=== PATIENT | female | born 1940 | race Caucasian/White ===

== ENCOUNTER 2023-10-15 13:13 | Inpatient (IN) | payer MEDICARE, OTHER ==
[~2023-10-15] VITALS: Ht 167.6 cm; Wt 104.0 kg
[2023-10-15 14:31] LABS: BASOPHILS % (AUTO) 0.4 % (0.0-2.0); EOSINOPHILS # (AUTO) 0.4 K/uL (0.0-0.7); EOSINOPHILS % (AUTO) 4.8 % (0.0-6.0); HEMATOCRIT 44 % (33-45); HEMOGLOBIN 14.5 g/dL (11.5-14.8); LYMPHOCYTES # (AUTO) 1.3 K/uL (0.8-4.8); LYMPHOCYTES % (AUTO) 14.9 % (20.0-44.0); MEAN CORPUSCULAR HEMOGLOBIN 27 PG (26.0-33.0); MEAN CORPUSCULAR HGB CONC 33 g/dl (31.0-36.0); MEAN CORPUSCULAR VOLUME 80 fL (82-100); MONOCYTES # (AUTO) 0.5 K/uL (0.1-1.30); MONOCYTES % (AUTO) 5.4 % (2.0-12.0); NEUTROPHILS # (AUTO) 6.7 K/uL (1.8-8.9); NEUTROPHILS % (AUTO) 74.5 % (43.0-81.0); PLATELET COUNT (AUTO) 210 K/uL (150-450); RED BLOOD CELL COUNT(AUTO) 5.47 MIL/uL (4.0-5.2); RED CELL DISTRIBUTION WIDTH 13.2 % (11.5-15.0); WHITE BLOOD COUNT (AUTO) 8.9 K/uL (4.3-11.0)
[2023-10-15 14:39] LABS: CALCIUM, SERUM 9.6 mg/dL (8.5-10.1); CARBON DIOXIDE 28 mmol/L (21-32); CHLORIDE 99 mmol/L (98-107); CREATININE 0.7 mg/dL (0.6-1.3); GLUCOSE 173 mg/dL (74-106); POTASSIUM 3.6 mmol/L (3.5-5.1); SODIUM SERUM 137 mmol/L (136-145); UREA NITROGEN, BLOOD 12 mg/dL (7-18)
[2023-10-15] MEDS ORDERED: NITROGLYCERIN 0.4 MG/TAB BOTTLE ONE (14:41)
[2023-10-15 14:46] LABS: APPEARANCE,URINE CLEAR (CLEAR); BILIRUBIN,URINE NEGATIVE (NEGATIVE); BLOOD, URINE TRACE-INTA Ery/uL (NEGATIVE); COLOR,URINE YELLOW (YELLOW); KETONES,URINE NEGATIVE (NEGATIVE); LEUKOCYTE ESTERASE ,URINE 1+ (NEGATIVE); NITRITE, URINE NEGATIVE (NEGATIVE); PROTEIN,URINE 1+ mg/dl (NEGATIVE); UGLUCOSE NEGATIVE (NEGATIVE)
[2023-10-15 14:52] LABS: NT-PRO BNP 892 pg/mL (0-125)
[2023-10-15] MEDS ORDERED: NITROGLYCERIN 0.4 MG/TAB BOTTLE SL ONE (15:00)
[2023-10-15] MEDS ORDERED: IV NS 0.9% 250 ML IV ONE (15:14)
[2023-10-15] MEDS ORDERED: IOHEXOL-350 100 ML VIAL IV ONE (15:14)
[2023-10-15] MEDS ORDERED: CT SWABBABLE VALVE TRANS SET 1 EA INFUS.SET MC ONE (15:14)
[2023-10-15] MEDS ORDERED: MORPHINE SULFATE INJ 2 MG/ML DISP.SYRIN ONE ×2 (15:16→16:47)
[2023-10-15] MEDS ORDERED: MORPHINE SULFATE INJ 2 MG/ML DISP.SYRIN IV ONE ×2 (15:30→16:30)
[2023-10-15] MEDS ORDERED: LEVO100T9 PO (16:03)
[2023-10-15] MEDS ORDERED: ATOR40TA PO (16:03)
[2023-10-15] MEDS ORDERED: DOCU100C58 PO (16:03)
[2023-10-15] MEDS ORDERED: CHOL100043 PO (16:03)
[2023-10-15] MEDS ORDERED: METO25TA20 PO (16:03)
[2023-10-15] MEDS ORDERED: METF-440 PO (16:03)
[2023-10-15] MEDS ORDERED: ASPI-1420 PO (16:03)
[2023-10-15] MEDS ORDERED: LOSA50TA39 PO (16:03)
[2023-10-15] MEDS ORDERED: CALCIUM CARBONATE PO (16:04)
[2023-10-15 16:11] LABS: ADD URINE CULTURE YES; BACTERIA,URINE 1+ /HPF (None Seen)
[2023-10-15] MEDS ORDERED: FUROSEMIDE 20 MG/2 ML VIAL ONE (16:47)
[2023-10-15] MEDS ORDERED: CEFTRIAXONE 1GM BAG (ER ONLY) 50 ML IV ONE (16:47)
[2023-10-15] MEDS ORDERED: ASPIRIN 81 MG TAB.CHEW ONE (16:48)
[2023-10-15] MEDS: CEFTRIAXONE 1 G in IV D5W 50 ML IV SCH (16:53)
[2023-10-15] MEDS ORDERED: NITROGLYCERIN 0.4 MG/TAB BOTTLE SL PRN (17:00)
[2023-10-15] MEDS ORDERED: MORPHINE SULFATE INJ 2 MG/ML DISP.SYRIN IV PRN (17:00)
[2023-10-15] MEDS ORDERED: FUROSEMIDE 20 MG/2 ML VIAL IV ONE (17:00)
[2023-10-15] MEDS ORDERED: CEFTRIAXONE 1 G in IV D5W 50 ML IV ONE (17:00)
[2023-10-15] MEDS ORDERED: ASPIRIN 81 MG TAB.CHEW PO ONE (17:00)
[2023-10-15 17:30] VITALS: BP 158/85; TEMP 98.4; O2SAT 98
[2023-10-15] MEDS ORDERED: METFORMIN 500 MG TABLET PO PRN (18:30)
[2023-10-15] MEDS ORDERED: METOPROLOL TARTRATE 25 MG TABLET PO SCH (18:30)
[2023-10-15 18:45] LABS: ALBUMIN 3.2 g/dL (3.4-5.0); BILIRUBIN,DIRECT 0.9 mg/dL (0.0-0.2); BILIRUBIN,TOTAL 1.5 mg/dL (0.2-1.0); TOTAL PROTEIN, SERUM 7.5 g/dL (6.4-8.2)
[2023-10-15 20:00] VITALS: BP 142/77; TEMP 97.6; O2SAT 99
[2023-10-16] VITALS: BP 132/59; TEMP 98.2; O2SAT 97
[2023-10-16 04:00] VITALS: BP 141/74; TEMP 98.5; O2SAT 98
[2023-10-16 06:27] LABS: BASOPHILS % (AUTO) 0.6 % (0.0-2.0); EOSINOPHILS # (AUTO) 0.7 K/uL (0.0-0.7); HEMATOCRIT 41 % (33-45); HEMOGLOBIN 13.8 g/dL (11.5-14.8); LYMPHOCYTES # (AUTO) 1.4 K/uL (0.8-4.8); MEAN CORPUSCULAR HEMOGLOBIN 27 PG (26.0-33.0); MEAN CORPUSCULAR HGB CONC 34 g/dl (31.0-36.0); MEAN CORPUSCULAR VOLUME 79 fL (82-100); MONOCYTES # (AUTO) 0.9 K/uL (0.1-1.30); MONOCYTES % (AUTO) 12.3 % (2.0-12.0); NEUTROPHILS % (AUTO) 57.1 % (43.0-81.0); PLATELET COUNT (AUTO) 188 K/uL (150-450); RED BLOOD CELL COUNT(AUTO) 5.14 MIL/uL (4.0-5.2); RED CELL DISTRIBUTION WIDTH 13.8 % (11.5-15.0)
[2023-10-16 06:56] LABS: CALCIUM, SERUM 9.4 mg/dL (8.5-10.1); CHLORIDE 102 mmol/L (98-107); CREATININE 0.6 mg/dL (0.6-1.3); GLUCOSE 147 mg/dL (74-106); MAGNESIUM 1.8 mg/dL (1.8-2.4); PHOSPHORUS 4.6 mg/dL (2.5-4.9); POTASSIUM 3.4 mmol/L (3.5-5.1); SODIUM SERUM 138 mmol/L (136-145); UREA NITROGEN, BLOOD 13 mg/dL (7-18)
[2023-10-16 07:27] LABS: CARBON DIOXIDE 26 mmol/L (21-32)
[2023-10-16 08:00] VITALS: BP 140/88; TEMP 98.2; O2SAT 96
[2023-10-16] MEDS: LEVOTHYROXINE SODIUM 100 MCG TABLET PO SCH (08:23)
[2023-10-16] MEDS: ASPIRIN EC 81 MG TABLET.DR PO SCH (08:24)
[2023-10-16] MEDS: FUROSEMIDE 20 MG/2 ML VIAL IV SCH (08:30)
[2023-10-16] MEDS: VALSARTAN 80 MG TABLET PO SCH (08:47)
[2023-10-16] MEDS ORDERED: LOSARTAN POTASSIUM 50 MG TABLET PO SCH (09:00)
[2023-10-16] MEDS ORDERED: ATORVASTATIN 40 MG TABLET PO SCH (09:00)
[2023-10-16] MEDS ORDERED: ASPIRIN 81 MG TAB.CHEW PO SCH (09:00)
[2023-10-16 09:27] LABS: ALANINE AMINOTRANSFERASE 1081 U/L (12-78); ALBUMIN 3.1 g/dL (3.4-5.0); ALKALINE PHOSPHATASE 280 U/L (46-116); ASPARTATE AMINOTRANSFERASE > 1000 U/L (15-37); BILIRUBIN,TOTAL 1.8 mg/dL (0.2-1.0); CALCIUM, SERUM 9.4 mg/dL (8.5-10.1); CARBON DIOXIDE 26 mmol/L (21-32); CHLORIDE 101 mmol/L (98-107); CREATININE 0.6 mg/dL (0.6-1.3); GLUCOSE 143 mg/dL (74-106); POTASSIUM 3.4 mmol/L (3.5-5.1); SODIUM SERUM 139 mmol/L (136-145); TOTAL PROTEIN, SERUM 7.2 g/dL (6.4-8.2); UREA NITROGEN, BLOOD 14 mg/dL (7-18)
[2023-10-16 09:36] LABS: THYROID STIMULATING HORMONE 2.088 uIU/mL (0.358-3.74)
[2023-10-16] MEDS ORDERED: IOHEXOL-350 100 ML VIAL IV ONE (09:59)
[2023-10-16] MEDS ORDERED: NITROGLYCERIN 0.4 MG/TAB BOTTLE SL ONE (10:00)
[2023-10-16] MEDS ORDERED: METOPROLOL TARTRATE INJ 5 MG/5 ML AMPUL ONE (10:15)
[2023-10-16] MEDS ORDERED: NITROGLYCERIN 0.4 MG/TAB BOTTLE ONE (10:15)
[2023-10-16] MEDS: METOPROLOL TARTRATE INJ 5 MG/5 ML AMPUL IVP PRN ×3 (10:30→10:40)
[2023-10-16] MEDS ORDERED: POTASSIUM CHLORIDE 20 MEQ TAB.PRT.SR PO ONE (11:00)
[2023-10-16 12:00] VITALS: BP 128/63; TEMP 98.4; O2SAT 97
[2023-10-16] MEDS: METOPROLOL TARTRATE 25 MG TABLET PO SCH ×2 (13:58→18:27)
[2023-10-16 16:00] VITALS: BP 114/76; TEMP 98.5; O2SAT 94
[2023-10-16] MEDS: ENOXAPARIN SODIUM 100 MG/ML DISP.SYRIN SQ SCH (18:32)
[2023-10-16] MEDS: CEFTRIAXONE 1 G in IV D5W 50 ML IV SCH (18:33)
[2023-10-17] MEDS: ENOXAPARIN SODIUM 100 MG/ML DISP.SYRIN SQ SCH (05:12)
[2023-10-17 07:11] LABS: INR 1.08 (0.91-1.10); PROTHROMBIN TIME 11.4 SECS (9.2-11.1)
[2023-10-17 07:15] LABS: BASOPHILS % (AUTO) 0.6 % (0.0-2.0); EOSINOPHILS # (AUTO) 0.9 K/uL (0.0-0.7); EOSINOPHILS % (AUTO) 10.5 % (0.0-6.0); HEMATOCRIT 45 % (33-45); LYMPHOCYTES # (AUTO) 2.6 K/uL (0.8-4.8); LYMPHOCYTES % (AUTO) 30.8 % (20.0-44.0); MEAN CORPUSCULAR HEMOGLOBIN 27 PG (26.0-33.0); MEAN CORPUSCULAR HGB CONC 34 g/dl (31.0-36.0); MEAN CORPUSCULAR VOLUME 80 fL (82-100); MONOCYTES # (AUTO) 0.8 K/uL (0.1-1.30); MONOCYTES % (AUTO) 9.9 % (2.0-12.0); NEUTROPHILS % (AUTO) 48.2 % (43.0-81.0); PLATELET COUNT (AUTO) 205 K/uL (150-450); RED BLOOD CELL COUNT(AUTO) 5.57 MIL/uL (4.0-5.2); WHITE BLOOD COUNT (AUTO) 8.3 K/uL (4.3-11.0)
[2023-10-17 07:17] LABS: BILIRUBIN,TOTAL 0.7 mg/dL (0.2-1.0); CALCIUM, SERUM 9.3 mg/dL (8.5-10.1); CREATININE 0.7 mg/dL (0.6-1.3); PHOSPHORUS 4.3 mg/dL (2.5-4.9); POTASSIUM 3.7 mmol/L (3.5-5.1); TOTAL PROTEIN, SERUM 7.3 g/dL (6.4-8.2)
[2023-10-17] MEDS: LEVOTHYROXINE SODIUM 100 MCG TABLET PO SCH ×2 (07:30→07:52)
[2023-10-17 08:08] LABS: *ANA ANTI-CENTROMERE B AB <0.2 AI (0.0-0.9); *ANA ANTI-DNA(DS) AB, QN 1 IU/mL (0-9); *ANA ANTI-JO-1 <0.2 AI (0.0-0.9); *ANA ANTICHROMATIN ANTIBODY <0.2 AI (0.0-0.9); *ANA RNP ANTIBODIES <0.2 AI (0.0-0.9); *ANA SJOGREN'S ANTI-SS-A <0.2 AI (0.0-0.9); *ANA SJOGREN'S ANTI-SS-B <0.2 AI (0.0-0.9); *ANAANTI-SCLERODERMA-70 AB <0.2 AI (0.0-0.9); *ANASMITH AB <0.2 AI (0.0-0.9)
[2023-10-17] MEDS: ASPIRIN EC 81 MG TABLET.DR PO SCH (09:00)
[2023-10-17] MEDS: FUROSEMIDE 20 MG/2 ML VIAL IV SCH (09:00)
[2023-10-17] MEDS: VALSARTAN 80 MG TABLET PO SCH (09:00)
[2023-10-17] MEDS: METOPROLOL TARTRATE 25 MG TABLET PO SCH ×3 (09:00→17:27)
[2023-10-17 10:09] VITALS: BP 139/84; TEMP 97.5; O2SAT 97
[2023-10-17] MEDS ORDERED: IV NS 0.9% 1,000 ML ONE (13:41)
[2023-10-17] MEDS ORDERED: IV SET PRIMARY PUMP SET 1 EA INFUS.SET MC ONE (13:41)
[2023-10-17] MEDS ORDERED: LIDOCAINE HCL/MPF 1% 30 ML VIAL IJ ONE (13:42)
[2023-10-17] MEDS ORDERED: IODIXANOL 150 ML IV ONE (13:42)
[2023-10-17] MEDS ORDERED: NITROGLYCERIN IN 5 % DEXTROSE 250 ML IV ONE (13:54)
[2023-10-17 14:18] VITALS: BP 152/46; TEMP 100.6; O2SAT 99
[2023-10-17] MEDS ORDERED: FENTANYL PF 100MCG/2ML AMPUL ONE (14:21)
[2023-10-17] MEDS ORDERED: APIX5TAB PO (14:57)
[2023-10-17 16:00] VITALS: BP 111/62; TEMP 97.6; O2SAT 92
[2023-10-17] MEDS: APIXABAN 5 MG TABLET PO SCH ×2 (17:00→17:28)
[2023-10-17] MEDS: CEFTRIAXONE 1 G in IV D5W 50 ML IV SCH (17:28)
[2023-10-17 20:00] VITALS: BP 105/58; TEMP 98.3; O2SAT 97
[2023-10-18] VITALS: BP 131/78; TEMP 98.2; O2SAT 94
[2023-10-18 05:00] VITALS: BP 149/92; TEMP 98.2; O2SAT 94
[2023-10-18] MEDS: LEVOTHYROXINE SODIUM 100 MCG TABLET PO SCH (07:43)
[2023-10-18 08:09] LABS: *SPE A/G RATIO 0.9 (0.7-1.7); *SPE ALBUMIN 2.9 g/dL (2.9-4.4); *SPE ALPHA-1-GLOBULIN 0.3 g/dL (0.0-0.4); *SPE ALPHA-2-GLOBULIN 0.9 g/dL (0.4-1.0); *SPE GLOBULIN, TOTAL 3.4 g/dL (2.2-3.9); *SPE M-SPIKE Not Observed g/dL (Not Observed); *SPE PROTEIN TOTAL 6.3 g/dL (6.0-8.5); *SPEGAMMA GLOBULIN 1.1 g/dL (0.4-1.8)
[2023-10-18] MEDS: FUROSEMIDE 20 MG/2 ML VIAL IV SCH (08:26)
[2023-10-18] MEDS: APIXABAN 5 MG TABLET PO SCH (08:26)
[2023-10-18] MEDS: ASPIRIN EC 81 MG TABLET.DR PO SCH (08:27)
[2023-10-18] MEDS: VALSARTAN 80 MG TABLET PO SCH (08:27)
[2023-10-18] MEDS: METOPROLOL TARTRATE 25 MG TABLET PO SCH (08:27)
[2023-10-18 08:31] VITALS: BP 121/97; TEMP 98; O2SAT 95
[2023-10-18] MEDS ORDERED: DIGOXIN INJ 0.5 MG/2 ML AMPUL IV ONE (09:00)
[2023-10-18] MEDS ORDERED: METOPROLOL SUCCINATE 50 MG TAB.SR.24H PO SCH (09:00)
[2023-10-18 11:50] LABS: BASOPHILS # (AUTO) 0.1 K/uL (0.0-0.2); BASOPHILS % (AUTO) 0.6 % (0.0-2.0); EOSINOPHILS # (AUTO) 0.6 K/uL (0.0-0.7); EOSINOPHILS % (AUTO) 5.8 % (0.0-6.0); HEMATOCRIT 44 % (33-45); HEMOGLOBIN 14.7 g/dL (11.5-14.8); LYMPHOCYTES # (AUTO) 1.9 K/uL (0.8-4.8); LYMPHOCYTES % (AUTO) 19.6 % (20.0-44.0); MEAN CORPUSCULAR HEMOGLOBIN 27 PG (26.0-33.0); MEAN CORPUSCULAR HGB CONC 34 g/dl (31.0-36.0); MEAN CORPUSCULAR VOLUME 81 fL (82-100); MONOCYTES # (AUTO) 0.9 K/uL (0.1-1.30); MONOCYTES % (AUTO) 9.4 % (2.0-12.0); NEUTROPHILS # (AUTO) 6.2 K/uL (1.8-8.9); NEUTROPHILS % (AUTO) 64.6 % (43.0-81.0); PLATELET COUNT (AUTO) 210 K/uL (150-450); RED BLOOD CELL COUNT(AUTO) 5.42 MIL/uL (4.0-5.2); RED CELL DISTRIBUTION WIDTH 14.1 % (11.5-15.0); WHITE BLOOD COUNT (AUTO) 9.5 K/uL (4.3-11.0)
[2023-10-18 12:06] VITALS: BP 135/90; TEMP 97.5; O2SAT 94
[2023-10-18] MEDS ORDERED: DIGOXIN 0.125 MG TABLET PO SCH (13:00)
[2023-10-18 13:16] LABS: CALCIUM, SERUM 9.1 mg/dL (8.5-10.1); CREATININE 0.9 mg/dL (0.6-1.3); POTASSIUM 3.7 mmol/L (3.5-5.1)
[2023-10-18 13:53] LABS: BILIRUBIN,DIRECT 0.2 mg/dL (0.0-0.2); BILIRUBIN,TOTAL 0.6 mg/dL (0.2-1.0); TOTAL PROTEIN, SERUM 7.3 g/dL (6.4-8.2)
== END 2023-10-18 14:22 | disposition home or self-care (01) | DRG 286 ==
LOC: ER 13:24 → TELE 16:42
PROVIDERS: ADMIT Internal Medicine
PROC: 4A023N7 Measurement of Cardiac Sampling and Pressure, Left Heart, Percutaneous Approach (ICD-10-PCS; principal; 2023-10-17)
PROC: B211YZZ Fluoroscopy of Multiple Coronary Arteries using Other Contrast (ICD-10-PCS; 2023-10-17)
DX: I25.110 Atherosclerotic heart disease of native coronary artery with unstable angina pectoris (principal); I50.33 Acute on chronic diastolic (congestive) heart failure; N39.0 Urinary tract infection, site not specified; I11.0 Hypertensive heart disease with heart failure; I48.91 Unspecified atrial fibrillation; E03.9 Hypothyroidism, unspecified; E11.65 Type 2 diabetes mellitus with hyperglycemia; E66.01 Morbid (severe) obesity due to excess calories; K43.9 Ventral hernia without obstruction or gangrene; Z79.01 Long term (current) use of anticoagulants; Z79.84 Long term (current) use of oral hypoglycemic drugs; Z90.49 Acquired absence of other specified parts of digestive tract; R74.01 Elevation of levels of liver transaminase levels; R91.8 Other nonspecific abnormal finding of lung field; E80.6 Other disorders of bilirubin metabolism; K86.89 Other specified diseases of pancreas
CPT/HCPCS: 36415; 71045-TC; 74181-TC; 75574; 76705-TC; 80048-TC; 80053-TC; 80076-TC; 81001; 83690-TC; 83735-TC; 83880; 84100-TC; 84155; 84165; 84439-TC; 84443-TC; 84484-TC; 85025-TC; 85610-TC; 86225; 86235; 87086-TC; 93307-TC; A4223; C1887; G0378; G0500; J0696; J1160; J1644; J1650; J1940; J2270; J3010; J3490; J7030; J7050; J7060; Q9967